=== PATIENT | male | born 1950 | race Caucasian/White ===

== ENCOUNTER 2017-07-14 12:43 | Emergency (ER) | payer BC ==
[2017-07-14 12:49] VITALS: BMI 28.2
[2017-07-14 14:11] LABS: ACTIVATED PTT 22.6 SECONDS (24.0-38.9)
[2017-07-14 14:15] LABS: INR 1.26 (0.82-1.09)
--- NOTE | 2017-07-14 15:20 | PDOC ---
History of Present Illness - General Chief Complaint: Pain, Acute Stated Complaint: BACK PAIN Time Seen by Provider: 07/14/17 12:59 - History of Present Illness Initial Comments: 07/14/17 15:23 66yo M hx CLL (diagnosed July 2016, on daily oral chemo) presents to the ED for work up of pleuritic upper back and lower chest pain. Pt states sxs started suddenly last night while he was at home. He denies SOB but states it is hard to breath due to the pain. Denies SOLITARIO. Also reports a subjective fever and chills 4 days ago that has since resolved. Pt saw his PMD Dr. Steel yesterday and had labs, blood cx drawn that were unremarkable, however this occurred prior to the back and chest pain. Denies LE edema. Denies nausea, vomiting, abd pain, dysuria, hematuria. No tx tried. Past History - Past Medical History Allergies/Adverse Reactions: Allergies Allergy/AdvReac Type Severity Reaction Status Date / Time No Known Allergies Allergy Verified 07/14/17 12:44 Home Medications: Ambulatory Orders Ibrutinib [Imbruvica] 420 mg PO DAILY 07/14/17 Losartan Potassium 0 mg PO DAILY 07/14/17 Cancer: Yes (CLL) CVA: No COPD: No HTN: Yes - Suicide/Smoking/Psychosocial Hx Smoking History: Never smoked Hx Alcohol Use: No Drug/Substance Use Hx: No Substance Use Type: None Review of Systems - Review of Systems Comments:: 07/14/17 15:26 GENERAL/CONSTITUTIONAL: +fever and chills. No weakness. HEAD, EYES, EARS, NOSE AND THROAT: No change in vision. No ear pain or discharge. No sore throat. GASTROINTESTINAL: No nausea, vomiting, diarrhea or constipation. GENITOURINARY: No dysuria, frequency, or change in urination. CARDIOVASCULAR: +chest pain, no shortness of breath. RESPIRATORY: No cough, wheezing, or hemoptysis. MUSCULOSKELETAL: No joint or muscle swelling or pain. No neck pain, +back pain SKIN: No rash NEUROLOGIC: No headache, vertigo, loss of consciousness, or change in strength/ sensation. ENDOCRINE: No increased thirst. No abnormal weight change. HEMATOLOGIC/LYMPHATIC: No anemia, easy bleeding, or history of blood clots. ALLERGIC/IMMUNOLOGIC: No hives or skin allergy. *Physical Exam - Vital Signs Last Vital Signs Temp Pulse Resp BP Pulse Ox 98.8 F 99 H 18 151/99 100 07/14/17 12:44 07/14/17 12:44 07/14/17 12:44 07/14/17 12:44 07/14/17 12:44 - Physical Exam Comments: 07/14/17 15:28 GENERAL: Awake, alert, and fully oriented, in no acute distress HEAD: No signs of trauma EYES: PERRLA, EOMI, sclera anicteric, conjunctiva clear ENT: Auricles normal inspection, hearing grossly normal, nares patent, oropharynx clear without exudates. Moist mucosa NECK: Normal ROM, supple, no lymphadenopathy, JVD, or masses LUNGS: Breath sounds equal, clear to auscultation bilaterally. No wheezes, and no crackles. O2 sat 100%, RR 14 HEART: Regular rate and rhythm, normal S1 and S2, no murmurs, rubs or gallops ABDOMEN: Soft, nontender, normoactive bowel sounds. No guarding, no rebound. No masses EXTREMITIES: Normal range of motion, no edema. No clubbing or cyanosis. No cords, erythema, or tenderness NEUROLOGICAL: Normal speech, cranial nerves intact, negative pronator drift, 5/ 5 strength in all 4 extremities, normal sensation to light touch in all 4 extremities, normal cerebellar exam, normal gait, normal reflexes and tone SKIN: Warm, Dry, normal turgor, no rashes or lesions noted. Heart Score/ECG Review #1 07/14/17 15:28 Twelve-lead EKG was performed and reviewed by me. Normal sinus rhythm, rate 75. Normal axis and intervals. No ST elevations or T-wave inversions. ED Treatment Course - ADDITIONAL ORDERS Additional order review: Laboratory Results 07/14/17 07/14/17 07/14/17 13:23 13:23 13:16 PT with INR 14.0 H INR 1.26 H PTT (Actin FS) 22.6 L Troponin I < 0.03 B-Natriuretic Peptide 46.21 - RADIOLOGY Radiology Studies Ordered: Category Date Time Status CHEST CTA [CT] Stat CT Scan 07/14/17 13:16 Completed Medical Decision Making - Medical Decision Making 07/14/17 15:29 66-year-old male with a history of lymphoma presents emergency Department with sudden onset pleuritic upper back and lower chest pain last night. Patient was sent in by his primary doctor who was concerned for pulmonary embolism. Vitals unremarkable. Exam unremarkable. CTA with no pulmonary embolism and reveals lymphadenopathy which Dr. Steel states is significantly improved to prior. CT scan also reveals splenomegaly which Dr. Steel also states was present in the past. CT also reveals a possible infiltrate which is new. Given that pt is on chemo, and had fever a few days ago, we decided we will cover with Levaquin. Labs from yesterday were reviewed as were blood cultures which are unremarkable. I also ordered a troponin and BNP which were also negative. Vitals are stable. Patient feels well and results were discussed the patient and his son. Dr. Steel requested that if they have any change in symptoms to call him first. I also gave the patient strict return precautions should he have any new, worsening or concerning symptoms. I discussed the physical exam findings, ancillary test results and final diagnoses with the patient. I answered all of the patient's questions. The patient was satisfied with the care received and felt comfortable with the discharge plan and treatment plan. The patient will call their primary care physician within 24 hours to arrange follow-up and will return to the Emergency Department with any new, persistent or worsening symptoms. *DC/Admit/Observation/Transfer Diagnosis at time of Disposition: Pneumonia - Discharge Dispostion Disposition: HOME Condition at time of disposition: Stable Decision to Admit order: No - Referrals - Patient Instructions Printed Discharge Instructions: DI for Pneumonia -- Adult Additional Instructions: Take the antibiotics as prescribed. Return to the emergency department immediately if you have any new, worsening, or concerning symptoms. It was a pleasure taking care of you today, we hope you feel better soon! -Dr. Stern - Post Discharge Activity - Attestations Physician Attestion: 07/14/17 15:45 I, Dr. Meliza Stern MD, attest that this document has been prepared under my direction and personally reviewed by me in its entirety. I further attest, that it accurately reflects all work, treatment, procedures and medical decision -making performed by me.
[2017-07-14 15:54] VITALS: BP 137/87; PULSE 77; TEMP 98.5
--- NOTE | 2017-07-15 10:32 | EKG ---
Test Reason : Blood Pressure : / mmHG Vent. Rate : 075 BPM Atrial Rate : 075 BPM P-R Int : 148 ms QRS Dur : 094 ms QT Int : 410 ms P-R-T Axes : 035 021 035 degrees QTc Int : 457 ms NORMAL SINUS RHYTHM NORMAL ECG NO PREVIOUS ECGS AVAILABLE Confirmed by MIROSLAVA ARGUETA MD ([id number]) on 07/15/2017 10:32:08 AM Referred By: NANCY JUAREZ Confirmed By:MIROSLAVA ARGUETA MD
== END 2017-07-14 15:54 | disposition home or self-care (01) ==
LOC: FER 12:43
DX: J18.9 Pneumonia, unspecified organism (principal); C85.90 Non-Hodgkin lymphoma, unspecified, unspecified site; C91.10 Chronic lymphocytic leukemia of B-cell type not having achieved remission; I10 Essential (primary) hypertension
CPT/HCPCS: 36415; 71275-TC; 83880; 84484; 85610; 85730; 87804; 93005; 99283-25

== ENCOUNTER 2020-08-23 09:31 | Inpatient (IN) | payer OTHER ==
[2020-08-23] MEDS ORDERED: SODIUM CHLORIDE 2,585 ML IV ONE (10:05)
[2020-08-23 10:43] LABS: EOS % 0.2 % (0-4.5); HEMATOCRIT 48.4 % (35.4-49); HEMOGLOBIN 16.5 GM/dL (11.7-16.9); LYMPH % 37.7 % (8-40); MCH 27.6 pg (25.7-33.7); MCHC 34.1 g/dl (32.0-35.9); MEAN CELL VOLUME 80.8 fl (80-96); MEAN PLT VOLUME 9.9 fl (7.5-11.1); MONO % 1.3 % (3.8-10.2); NEUT % 60.8 % (42.8-82.8); PLATELET COUNT 154 10^3/uL (134-434); RBC 5.98 M/mm3 (4.00-5.60); RDW 13.3 % (11.9-15.9)
[2020-08-23 10:46] LABS: INR 1.19 (0.83-1.09); PROTHROMBIN TIME (PATIENT) 14.3 SEC (9.7-13.0)
[2020-08-23 10:47] LABS: WHITE BLOOD COUNT 1.7 K/mm3 (4.0-10.0)
[2020-08-23 10:49] LABS: ACTIVATED PTT 34.8 SECONDS (25.2-36.5)
[2020-08-23 10:52] LABS: CHLORIDE 99 mmol/L (98-107); SODIUM 136 mmol/L (136-145)
[2020-08-23 10:54] LABS: ANION GAP 9 MMOL/L (8-16); BLOOD UREA NITROGEN 16.9 mg/dL (7-18); CALCIUM 8.3 mg/dL (8.5-10.1); CO2 28 mmol/L (21-32); GLUCOSE,RANDOM 101 mg/dL (74-106)
[2020-08-23] MEDS ORDERED: CEFEPIME HCL/D5W 2 GM/50 ML BAG IVPB ONE (10:55)
[2020-08-23] MEDS ORDERED: VANCOMYCIN 1 GM PREMIX - 1 GM/200 ML BAG IVPB ONE (10:55)
[2020-08-23 10:57] LABS: SGOT/AST 34 U/L (15-37); SGPT/ALT 48 U/L (13-61)
[2020-08-23 10:58] LABS: CREATININE 1.5 mg/dL (0.55-1.3)
[2020-08-23 10:59] LABS: BILIRUBIN,TOTAL 1.9 mg/dL (0.2-1); TOT PROT 7.1 g/dl (6.4-8.2)
[2020-08-23 11:00] LABS: ALK PHOS 63 U/L (45-117)
[2020-08-23] MEDS ORDERED: CEFEPIME 2 GM/100 ML BAG IVPB ONE (11:01)
[2020-08-23 11:22] LABS: PH,URINE 6.5 (5.0-8.0); URINE APPEARANCE CLEAR; URINE BILIRUBIN NEGATIVE (NEGATIVE); URINE COLOR YELLOW; URINE GLUCOSE (UA) NEGATIVE (NEGATIVE); URINE KETONE NEGATIVE (NEGATIVE); URINE LEUK ESTERASE NEGATIVE (NEGATIVE); URINE NITRITE NEGATIVE (NEGATIVE); URINE PROTEIN NEGATIVE (NEGATIVE)
[2020-08-23] MEDS ORDERED: VANCOMYCIN 1 GRAM (PRE-DOCKED) 1,000 MG/250 ML BAG IVPB ONE (11:31)
[2020-08-23] MEDS ORDERED: ACETAMINOPHEN 500 MG TABLET (FP) PO ONE (12:04)
[2020-08-23] MEDS ORDERED: ACETAMINOPHEN 325 MG TABLET (FP) ONE (12:17)
[2020-08-23 13:59] LABS: ANISOCYTOSIS 0; MACROCYTOSIS 0; PLATELET ESTIMATE NORMAL
[2020-08-23] MEDS ORDERED: ONDANSETRON 4 MG/2 ML VIAL IVPUSH PRN (14:10)
[2020-08-23] MEDS ORDERED: SODIUM CHLORIDE 1,000 ML IV SCH (14:15)
[2020-08-23] MEDS ORDERED: POTASSIUM CHLORIDE TABS 20 MEQ TABLET.ER (FP) PO ONE (14:23)
[2020-08-23 15:30] VITALS: BMI 29.6
[2020-08-23] MEDS: CEFEPIME 2 GM in DEXTROSE 5%-WATER 100 ML IVPB SCH (22:07)
[2020-08-24 07:16] LABS: EOS % 2.2 % (0-4.5); HEMATOCRIT 42.3 % (35.4-49); HEMOGLOBIN 14.3 GM/dL (11.7-16.9); LYMPH % 50.1 % (8-40); MCH 27.3 pg (25.7-33.7); MCHC 33.8 g/dl (32.0-35.9); MEAN CELL VOLUME 80.9 fl (80-96); MEAN PLT VOLUME 10.1 fl (7.5-11.1); MONO % 47.3 % (3.8-10.2); NEUT % 0.4 % (42.8-82.8); PLATELET COUNT 128 10^3/uL (134-434); RBC 5.22 M/mm3 (4.00-5.60); RDW 13.2 % (11.9-15.9); WHITE BLOOD COUNT 2.2 K/mm3 (4.0-10.0)
[2020-08-24 07:34] LABS: CALCIUM 7.7 mg/dL (8.5-10.1)
[2020-08-24 07:35] LABS: BLOOD UREA NITROGEN 17.6 mg/dL (7-18); MAGNESIUM 2.3 mg/dL (1.8-2.4)
[2020-08-24 07:38] LABS: CREATININE 1.3 mg/dL (0.55-1.3)
[2020-08-24 07:39] LABS: PHOSPHOROUS 2.3 mg/dL (2.5-4.9)
[2020-08-24] MEDS: ENOXAPARIN NA (PORCINE) 40 MG/0.4 ML DISP.SYRIN SQ SCH (10:00)
[2020-08-24] MEDS: KCL 10 MEQ IVPB 10 MEQ/100 ML INFUS.BAG IVPB SCH ×3 (10:00→18:45)
[2020-08-24] MEDS ORDERED: amLODIPine BESYLATE 10 MG TABLET (FP) PO SCH (10:00)
[2020-08-24] MEDS ORDERED: POTASSIUM PHOSPHATE 15 MM in SODIUM CHLORIDE 250 ML IVPB ONE (10:00)
[2020-08-24 10:42] LABS: ANISOCYTOSIS 1+; MACROCYTOSIS 0; OVALOCYTE 1+; PLATELET ESTIMATE DECREASED
[2020-08-24] MEDS: CEFEPIME 2 GM in DEXTROSE 5%-WATER 100 ML IVPB SCH ×2 (11:17→23:02)
[2020-08-24] MEDS: BACITRACIN 15 GM TUBE TOPICAL OINTMENT TP SCH (12:50)
[2020-08-24] MEDS: VANCOMYCIN 1 GRAM (PRE-DOCKED) 1,000 MG/250 ML BAG IVPB SCH (18:45)
[2020-08-24] MEDS: valACYclovir HCL 500 MG TABLET (FP) PO SCH (23:02)
[2020-08-25 08:16] LABS: BASO % 0.1 % (0-2.0); EOS % 17.2 % (0-4.5); HEMATOCRIT 43.8 % (35.4-49); HEMOGLOBIN 14.6 GM/dL (11.7-16.9); LYMPH % 40.4 % (8-40); MCH 26.9 pg (25.7-33.7); MCHC 33.4 g/dl (32.0-35.9); MEAN CELL VOLUME 80.5 fl (80-96); MONO % 41.5 % (3.8-10.2); NEUT % 0.8 % (42.8-82.8); PLATELET COUNT 142 10^3/uL (134-434); RBC 5.44 M/mm3 (4.00-5.60)
[2020-08-25 08:24] LABS: BLOOD UREA NITROGEN 17.8 mg/dL (7-18); CALCIUM 7.8 mg/dL (8.5-10.1); MAGNESIUM 2.5 mg/dL (1.8-2.4)
[2020-08-25 08:29] LABS: BILIRUBIN,TOTAL 0.9 mg/dL (0.2-1); TOT PROT 5.8 g/dl (6.4-8.2)
[2020-08-25 08:40] LABS: WHITE BLOOD COUNT 1.7 K/mm3 (4.0-10.0)
[2020-08-25] MEDS ORDERED: DOXYCYCLINE HYCLATE 100 MG CAPSULE PO SCH (10:00)
[2020-08-25] MEDS: valACYclovir HCL 500 MG TABLET (FP) PO SCH ×2 (10:10→22:04)
[2020-08-25] MEDS: ENOXAPARIN NA (PORCINE) 40 MG/0.4 ML DISP.SYRIN SQ SCH (10:10)
[2020-08-25] MEDS: BACITRACIN 15 GM TUBE TOPICAL OINTMENT TP SCH (10:10)
[2020-08-25] MEDS: CEFEPIME 2 GM in DEXTROSE 5%-WATER 100 ML IVPB SCH ×2 (10:10→22:03)
[2020-08-25] MEDS: FLUCONAZOLE 100 MG TABLET (UD) PO SCH (10:10)
[2020-08-25] MEDS: VANCOMYCIN 1 GRAM (PRE-DOCKED) 1,000 MG/250 ML BAG IVPB SCH ×2 (10:11→17:39)
[2020-08-25 10:29] LABS: ANISOCYTOSIS 0; HELMET CELLS 0; HOWELL-JOLLY BODIES 0; MACROCYTOSIS 0; OVALOCYTE 0; PLATELET ESTIMATE DECREASED; ROULEAU 0; SICKELED CELLS 0; TARGET CELLS 0; TEAR DROP CELLS 0; TOXIC GRANULATION 0
[2020-08-26] MEDS: VANCOMYCIN 1 GRAM (PRE-DOCKED) 1,000 MG/250 ML BAG IVPB SCH (05:38)
[2020-08-26 07:47] LABS: EOS % 17.3 % (0-4.5); HEMATOCRIT 43.2 % (35.4-49); HEMOGLOBIN 14.5 GM/dL (11.7-16.9); LYMPH % 39.3 % (8-40); MCH 27.1 pg (25.7-33.7); MCHC 33.6 g/dl (32.0-35.9); MEAN CELL VOLUME 80.7 fl (80-96); NEUT % 1.4 % (42.8-82.8); PLATELET COUNT 149 10^3/uL (134-434); RBC 5.35 M/mm3 (4.00-5.60); RDW 12.9 % (11.9-15.9)
[2020-08-26 08:11] LABS: ALBUMIN 2.9 g/dl (3.4-5.0); BLOOD UREA NITROGEN 16.1 mg/dL (7-18); CALCIUM 8.1 mg/dL (8.5-10.1); MAGNESIUM 2.5 mg/dL (1.8-2.4)
[2020-08-26 08:15] LABS: BILIRUBIN,TOTAL 0.9 mg/dL (0.2-1); PHOSPHOROUS 2.7 mg/dL (2.5-4.9); TOT PROT 5.7 g/dl (6.4-8.2)
[2020-08-26 08:39] LABS: WHITE BLOOD COUNT 1.9 K/mm3 (4.0-10.0)
[2020-08-26] MEDS: ENOXAPARIN NA (PORCINE) 40 MG/0.4 ML DISP.SYRIN SQ SCH (09:42)
[2020-08-26] MEDS: FLUCONAZOLE 100 MG TABLET (UD) PO SCH (09:42)
[2020-08-26] MEDS: valACYclovir HCL 500 MG TABLET (FP) PO SCH ×2 (09:42→21:04)
[2020-08-26] MEDS: CEFEPIME 2 GM in DEXTROSE 5%-WATER 100 ML IVPB SCH (09:42)
[2020-08-26] MEDS: BACITRACIN 15 GM TUBE TOPICAL OINTMENT TP SCH (09:42)
[2020-08-26 11:26] LABS: ANISOCYTOSIS 0; MACROCYTOSIS 0; PLATELET ESTIMATE DECREASED
[2020-08-26] MEDS: POTASSIUM CHLORIDE TABS 20 MEQ TABLET.ER (FP) PO SCH (12:33)
[2020-08-26] MEDS ORDERED: DEXTROSE 5%-WATER - 50 ML IVPB ONE (17:18)
[2020-08-26] MEDS ORDERED: cefTRIAXone SODIUM 1 GM VIAL ONE (17:18)
[2020-08-26] MEDS ORDERED: CEFTRIAXONE 1 GM in DEXTROSE 5%-WATER - 50 ML IVPB ONE (18:00)
[2020-08-27 08:21] LABS: BASO % 2.2 % (0-2.0); EOS % 13.3 % (0-4.5); HEMATOCRIT 44.5 % (35.4-49); HEMOGLOBIN 15.1 GM/dL (11.7-16.9); LYMPH % 37.7 % (8-40); MCH 27.2 pg (25.7-33.7); MCHC 33.9 g/dl (32.0-35.9); MEAN CELL VOLUME 80.5 fl (80-96); MEAN PLT VOLUME 9.4 fl (7.5-11.1); MONO % 42.9 % (3.8-10.2); NEUT % 3.9 % (42.8-82.8); PLATELET COUNT 179 10^3/uL (134-434); RBC 5.53 M/mm3 (4.00-5.60); RDW 13.3 % (11.9-15.9); WHITE BLOOD COUNT 2.5 K/mm3 (4.0-10.0)
[2020-08-27 08:43] LABS: CALCIUM 8.4 mg/dL (8.5-10.1)
[2020-08-27 08:45] LABS: ALBUMIN 3.1 g/dl (3.4-5.0); BLOOD UREA NITROGEN 15.2 mg/dL (7-18); MAGNESIUM 2.6 mg/dL (1.8-2.4)
[2020-08-27 08:47] LABS: CREATININE 1.1 mg/dL (0.55-1.3); PHOSPHOROUS 2.7 mg/dL (2.5-4.9)
[2020-08-27 08:49] LABS: BILIRUBIN,TOTAL 0.5 mg/dL (0.2-1); TOT PROT 6.2 g/dl (6.4-8.2)
[2020-08-27] MEDS: valACYclovir HCL 500 MG TABLET (FP) PO SCH ×2 (10:32→21:13)
[2020-08-27] MEDS: POTASSIUM CHLORIDE TABS 20 MEQ TABLET.ER (FP) PO SCH (10:32)
[2020-08-27] MEDS: ENOXAPARIN NA (PORCINE) 40 MG/0.4 ML DISP.SYRIN SQ SCH (10:32)
[2020-08-27] MEDS: FLUCONAZOLE 100 MG TABLET (UD) PO SCH (10:32)
[2020-08-27] MEDS: BACITRACIN 15 GM TUBE TOPICAL OINTMENT TP SCH (10:32)
[2020-08-27 12:07] LABS: ANISOCYTOSIS 0; MACROCYTOSIS 0; PLATELET ESTIMATE NORMAL
[2020-08-27] MEDS: DOXYCYCLINE HYCLATE 100 MG CAPSULE PO SCH (18:35)
[2020-08-28 08:32] LABS: BASO % 2.9 % (0-2.0); HEMATOCRIT 44.9 % (35.4-49); LYMPH % 38.5 % (8-40); MCHC 33.5 g/dl (32.0-35.9); MEAN CELL VOLUME 80.6 fl (80-96); MEAN PLT VOLUME 9.3 fl (7.5-11.1); MONO % 38.4 % (3.8-10.2); NEUT % 10.2 % (42.8-82.8); PLATELET COUNT 192 10^3/uL (134-434); RBC 5.57 M/mm3 (4.00-5.60); WHITE BLOOD COUNT 2.5 K/mm3 (4.0-10.0)
[2020-08-28 08:56] LABS: CALCIUM 8.8 mg/dL (8.5-10.1)
[2020-08-28 08:58] LABS: ALBUMIN 3.2 g/dl (3.4-5.0); MAGNESIUM 2.6 mg/dL (1.8-2.4)
[2020-08-28 09:01] LABS: CREATININE 1.1 mg/dL (0.55-1.3)
[2020-08-28 09:02] LABS: BILIRUBIN,TOTAL 0.5 mg/dL (0.2-1); TOT PROT 6.2 g/dl (6.4-8.2)
[2020-08-28 09:30] LABS: ANISOCYTOSIS 0; HELMET CELLS 0; HOWELL-JOLLY BODIES 0; MACROCYTOSIS 0; OVALOCYTE 0; PLATELET ESTIMATE NORMAL; ROULEAU 0; SICKELED CELLS 0; TARGET CELLS 0; TEAR DROP CELLS 0; TOXIC GRANULATION 0
[2020-08-28] MEDS: valACYclovir HCL 500 MG TABLET (FP) PO SCH ×2 (10:40→21:00)
[2020-08-28] MEDS: POTASSIUM CHLORIDE TABS 20 MEQ TABLET.ER (FP) PO SCH (10:40)
[2020-08-28] MEDS: ENOXAPARIN NA (PORCINE) 40 MG/0.4 ML DISP.SYRIN SQ SCH (10:41)
[2020-08-28] MEDS: DOXYCYCLINE HYCLATE 100 MG CAPSULE PO SCH (10:41)
[2020-08-28] MEDS: BACITRACIN 15 GM TUBE TOPICAL OINTMENT TP SCH (10:41)
[2020-08-28] MEDS: AMOX TR/POT CLAV 875MG/125MG TABLETS (FP) PO SCH (17:24)
[2020-08-29 07:54] VITALS: BP 111/60; PULSE 63; TEMP 98
[2020-08-29] MEDS: AMOX TR/POT CLAV 875MG/125MG TABLETS (FP) PO SCH (09:53)
[2020-08-29] MEDS: valACYclovir HCL 500 MG TABLET (FP) PO SCH (09:53)
[2020-08-29] MEDS: ENOXAPARIN NA (PORCINE) 40 MG/0.4 ML DISP.SYRIN SQ SCH (09:53)
[2020-08-29] MEDS: BACITRACIN 15 GM TUBE TOPICAL OINTMENT TP SCH (09:53)
[2020-08-29] MEDS: POTASSIUM CHLORIDE TABS 20 MEQ TABLET.ER (FP) PO SCH (09:53)
[2020-08-29 11:28] LABS: EOS % 6.8 % (0-4.5); HEMATOCRIT 42.2 % (35.4-49); HEMOGLOBIN 14.5 GM/dL (11.7-16.9); LYMPH % 35.9 % (8-40); MCH 27.6 pg (25.7-33.7); MCHC 34.3 g/dl (32.0-35.9); MEAN CELL VOLUME 80.6 fl (80-96); MEAN PLT VOLUME 9.2 fl (7.5-11.1); MONO % 32.6 % (3.8-10.2); NEUT % 22.7 % (42.8-82.8); PLATELET COUNT 203 10^3/uL (134-434); RBC 5.24 M/mm3 (4.00-5.60); RDW 13.1 % (11.9-15.9); WHITE BLOOD COUNT 2.8 K/mm3 (4.0-10.0)
[2020-08-29 12:13] LABS: ANISOCYTOSIS 0; HELMET CELLS 0; HOWELL-JOLLY BODIES 0; MACROCYTOSIS 0; OVALOCYTE 0; PLATELET ESTIMATE NORMAL; ROULEAU 0; SICKELED CELLS 0; TARGET CELLS 0; TEAR DROP CELLS 0; TOXIC GRANULATION 0
== END 2020-08-29 16:18 | disposition home or self-care (01) | DRG 872 ==
LOC: JER 09:31 → JERBED 12:57 → J7W 14:59
PROVIDERS: ADMIT Internal Medicine; ATTEND Internal Medicine
DX: A41.02 Sepsis due to Methicillin resistant Staphylococcus aureus (principal); C91.10 Chronic lymphocytic leukemia of B-cell type not having achieved remission; N17.9 Acute kidney failure, unspecified; L03.314 Cellulitis of groin; R51.9 Headache, unspecified; I10 Essential (primary) hypertension; L98.9 Disorder of the skin and subcutaneous tissue, unspecified; D70.9 Neutropenia, unspecified; I95.9 Hypotension, unspecified; R50.9 Fever, unspecified; E87.6 Hypokalemia; R00.0 Tachycardia, unspecified
CPT/HCPCS: 36415; 70450-TC; 71045-TC-FY; 80048; 80053; 81003; 83605; 83735; 84100; 84443; 84484; 85025; 85610; 85730; 87040; 87070; 87086; 87186; 87205; 93005; 93010; 99285-25; C9803; G0480; U0003; U0005